=== PATIENT | female | born 1980 | race Hispanic/Latino ===

== ENCOUNTER 2020-12-17 22:34 | Emergency (ER) | payer SELFPAY | END 2020-12-17 23:48 | disposition home or self-care (01) | LOC: EDH 22:34 | DX: R20.2 Paresthesia of skin (principal); M25.532 Pain in left wrist; R20.0 Anesthesia of skin; E11.9 Type 2 diabetes mellitus without complications; E78.00 Pure hypercholesterolemia, unspecified | CPT/HCPCS: 29125 ==